=== PATIENT | male | born 1965 | race Caucasian/White ===

== ENCOUNTER → 2018-07-02 | Outpatient (CLI) | payer OTHER | END | disposition home or self-care (01) | LOC: C.PATHSPEC 17:41 | PROVIDERS: ATTEND Surgery | DX: L72.0 Epidermal cyst (principal) ==

== ENCOUNTER 2019-06-12 11:34 | Observation (INO) ==
--- OUTSIDE RECORDS SUMMARY | 2019-06-12 11:37 | External Medical Summary | Continuity of Care Document ---
:1965 Author Name Dara Limon, Provider Address Unavailable Unavailable , Care Team Providers Name Role Phone Unavailable Unavailable Unavailable NISREEN SAMS Unavailable Unavailable Problems Hepatitis C (070.70) (B19.20) Unstable angina (411.1) (I20.0) Tobacco abuse (305.1) (Z72.0) Bipolar disorder (296.80) (F31.9) Angina pectoris (413.9) (I20.9) Coronary artery disease (414.00) (I25.10) Hyperlipidemia (272.4) (E78.5) Hypertension (401.9) (I10) Inferior NV (410.40) (I21.19) Left ventricular dysfunction (429.9) (I51.9) Soft tissue mass (729.90) (M79.9) Sebaceous cyst (706.2) (L72.3) Allergies and Adverse Reactions No Known Drug Allergies (Allergy) Wool (Allergy) Medications Aspirin 81 MG TABS; TAKE 1 TABLET DAILY. , M.D. Quantity: 90 Refills: 3 FLUoxetine HCl - 20 MG Oral Capsule; Take 4 capsules daily , M.D. Refills: 0 Plavix 75 MG Oral Tablet; TAKE 1 TABLET DAILY. , M.D. Quantity: 30 Refills: 5 Atorvastatin Calcium 40 MG Oral Tablet; TAKE 1 TABLET AT BED TIME. , M.D. Refills: 0 Melatonin 3 MG Oral Tablet; TAKE 1 TABLET AT BEDTIME. , M.D. Refills: 0 Mirtazapine 30 MG Oral Tablet , M.D. Refills: 0 Nitrostat 0.4 MG Sublingual Tablet Subli ngual; PLACE 1 TABLET UNDER THE TONGUE EVERY 5 MINUTES FOR UP TO 3 DOSES NEEDED FOR CHEST PAIN.CALL 911 IF PAIN PERSISTS. , M.D. Quantity: 25 Refills: 5 raNITIdine HCl - 150 MG Oral Tablet; TAKE 1 TABLET TWICE NEO LY. , M.D. Refills: 0 Warden Carbonate 150 MG Oral Capsule; T JYOTSNA 1 CAPSULE TWICE DAILY ALONG WITH 300 MG. , M.D. Refills: 0 Warden Carbonate 300 MG Oral Capsule; T JYOTSNA 1 CAPSULE TWICE DAILY ALONG WITH 150 MG. , M.D. Refills: 0 Ibuprofen 600 MG Oral Tablet; TAKE 1 TABLET 3 TIMES DAILY. , M.D. Start: 03-Jul-2018 Refills: 0 Metoprolol Tartrate 50 MG Oral Tablet , M.D. Refills: 0 Procedures History of CABG Status: Completed History of cyst excision Status: [facility] ed 02-Jul-2018 0:00 Immunizations Immunizations not documented Plan of Treatment Planned Observations Planned Goals not documented Results No Known Results Results not documented Encounters Appointment; Hernan Sutton M.D. 02-Jul-2018 14:20 Encounter Diagnosis: Problem not documented
[2019-06-12] MEDS ORDERED: NITROGLYCERIN SL 0.4 MG/TAB TAB SL STA (12:14)
[2019-06-12] MEDS ORDERED: NITROGLYCERIN 2% OINTMENT 30GM TUBE EXT ONE (12:14)
[2019-06-12 12:21] LABS: Basophils # (auto) 0.05 K/uL (0-0.2); Basophils % (auto) 0.5 %; Eosinophils # (auto) 0.23 K/uL (0-0.5); Eosinophils % (auto) 2.2 %; Hematocrit (blood only) 43.2 % (42-52); Hemoglobin 15.1 g/dL (14.0-18.0); Immature Granulocytes # (auto) 0.03 K/uL (0.00-0.02); Immature Granulocytes % (auto) 0.3 %; Lymphocytes # (auto) 2.91 K/uL (1.2-3.4); Lymphocytes % (auto) 27.8 %; Mean Corpuscular Volume 87.3 fL (80-100); Mean Platelet Volume 10.2 fL (7.4-10.4); Monocytes # (auto) 0.71 K/uL (0.11-0.59); Monocytes % (auto) 6.8 %; Neutrophils # (auto) 6.55 K/uL (1.4-6.5); Neutrophils % (auto) 62.4 %; Platelet Count 225 K/uL (130-400); RDW Standard Deviation 41.6 fL (36.4-46.3); Red Blood Count 4.95 M/uL (4.7-6.1); White Blood Count 10.48 K/uL (4.8-10.8)
--- NOTE | 2019-06-12 12:21 | Emergency Department Note ---
Entered by Heavenly Dye acting as a scribe for Cyril Prater MD History of Present Illness General Chief complaint: Chest Pain Time Seen by Provider: 06/12/19 12:00 Source: patient History of Present Illness Provider complaint: Chest pain Onset (ago): hour(s) 6 Location: chest Radiation: other (left shoulder and arm) Pain Consistency: + intermittent Maximum Pain Intensity: 3 Quality: + sharp Associated symptoms: + chest pain, + nausea/vomiting (nausea), + shortness of breath and + other (Positive: sweats Negative: bloody or black stools) The patient is a 53 year old male who presents to the ED with complaints of intermittent sharp central chest pain that started 6 hours ago. The patient reports his pain radiates to the left side of his shoulder and down his arm. He states he has shortness of breath, sweats, and nausea. The patient notes it hurt to breathe this morning but not anymore. He describes his pain as someone sitting on my chest and rates it as 6/10. The patient states he was given nitro in the ambulance and his pain was improved. He reports he has been having intermittent chest pain for the past 5 years. The patient states last time he had chest pain was 3 days ago. He notes last time he had a stress test was 3 years ago and does not know the results. The patient states his pain was worse today and decided to come to the ED. He reports he has history of bypass surgery and a placed stent. The patient notes he has history of hepatitis C and hypertension. He reports he is a former smoker and does not use drugs. He notes he has family history of heart disease. The patient denies bloody or black stools, history of blood clots, or history of HIV. . Home Medications Home Medications Medication Instructions Recorded Confirmed Type aspirin [Aspirin Low Dose] 81 mg PO DAILY 06/12/19 06/12/19 History atorvastatin 80 mg PO DAILY 06/12/19 06/12/19 History clopidogrel 75 mg PO DAILY 06/12/19 06/12/19 History fluoxetine 20 mg PO DAILY 06/12/19 06/12/19 History lisinopril 10 mg PO DAILY 06/12/19 06/12/19 History lithium carbonate 450 mg PO BID 06/12/19 06/12/19 History metoprolol succinate 50 mg PO DAILY 06/12/19 06/12/19 History nitroglycerin 0.4 mg SUBLINGUAL DAILY PRN 06/12/19 06/12/19 History quetiapine 100 mg PO TID 06/12/19 06/12/19 History Allergies Allergy/AdvReac Type Severity Reaction Status Date / Time wool AdvReac Unknown Unverified 06/12/19 12:19 Past Med/Surg History Medical History Bipolar disorder (Chronic) Coronary artery disease (Chronic) Left-sided chest pain (Acute) Hepatitis C (Acute) Hypertension (Chronic) Heart disease Family History Other Heart disease Social History Feels Safe at Home: Yes Smoking Status: Former smoker Review of Systems See HPI for pertinent positives & negatives. and A total of 10 systems reviewed and were otherwise negative Physical Exam Vital Signs Vital Signs - 24 hr 06/12/19 11:47 06/12/19 11:56 06/12/19 12:15 Temperature 37.0 C Temperature Source Oral Sepsis Recent Fever Within 48 Hours No Sepsis New/Unexplained Change in Mental Status No Sepsis Action Taken by Nursing No Action Required Pulse Rate 72 Pulse Rate [Apical] Pulse Rate from SpO2 Sensor Respiratory Rate 16 Respiratory Effort / Characteristics Non-Labored Respiratory Depth Normal Respiratory Pattern Regular Blood Pressure 132/89 Blood Pressure [Right Arm] Blood Pressure Mean 103 Blood Pressure Mean [Right Arm] Pulse Oximetry 95 96 95 Oxygen Delivery Method Room Air Room Air Room Air 06/12/19 12:27 06/12/19 12:40 06/12/19 13:00 Temperature Temperature Source Sepsis Recent Fever Within 48 Hours Sepsis New/Unexplained Change in Mental Status Sepsis Action Taken by Nursing Pulse Rate 53 L Pulse Rate [Apical] 59 L 57 L Pulse Rate from SpO2 Sensor 53 L Respiratory Rate 18 18 20 Respiratory Effort / Characteristics Non-Labored Spontaneous Respiratory Depth Normal Normal Respiratory Pattern Blood Pressure 133/73 Blood Pressure [Right Arm] 140/85 139/78 Blood Pressure Mean 93 Blood Pressure Mean [Right Arm] 103 98 Pulse Oximetry 94 95 95 Oxygen Delivery Method Room Air Room Air Room Air 06/12/19 13:24 06/12/19 13:30 06/12/19 14:00 Temperature Temperature Source Sepsis Recent Fever Within 48 Hours Sepsis New/Unexplained Change in Mental Status Sepsis Action Taken by Nursing Pulse Rate 54 L 52 L 53 L Pulse Rate [Apical] Pulse Rate from SpO2 Sensor 54 L 52 L 54 L Respiratory Rate 20 20 20 Respiratory Effort / Characteristics Respiratory Depth Respiratory Pattern Blood Pressure 131/80 128/80 133/72 Blood Pressure [Right Arm] Blood Pressure Mean 97 96 92 Blood Pressure Mean [Right Arm] Pulse Oximetry 94 95 94 Oxygen Delivery Method Room Air Room Air General: Non-ill appearing middle aged man in no acute distress. HEENT: Normal cephalic atraumatic. Pupils are equal round and reactive to light. Extraocular movements are intact. Oropharynx is pink with moist mucous membranes. No swelling of the mouth lips or tongue. Neck: Supple with a midline trachea. No meningeal signs or stiffness, no JVD or bruits. No Stridor. Chest: Clear to auscultation bilaterally. No wheezes or rhonchi. No increased work of breathing. Heart: regular rate and rhythm. Abdomen: Soft nontender, nondistended without rebound guarding or rigidity. Extremities: No cyanosis clubbing or edema. No calf tenderness or asymmetry Spine/Back. Non tender to palpation. No CVA tenderness Skin: Good turgor without rashes. Neurologic exam: Cranial nerves two through 12 are intact. Motor and sensation are intact and symmetrical throughout. Course 1203: The patient was evaluated in room A10. A complete history and physical exam was performed. 1235: I reviewed the patient's case with Dr. Vincent [facility] Hospitalist. 1240: I checked on the patient. The patient is feeling much better. His pain is almost gone. 1302: I reassessed the patient and he appears comfortable and in no distress. He reports his pain as 3/10. I ordered him 2 ml IV morphine. 1341: I reviewed the patient's case with Dr. Vincent [facility] Hospitalist. He is admitting the patient. Administered Medications Discontinued Medications Morphine Sulfate (Morphine Sulfate) 2 mg IV NOW STA Stop: 06/12/19 13:06 Last Admin: 06/12/19 13:09 Dose: 2 mg Documented by: [id number] Nitroglycerin (Nitro-Bid 2%) 1 inch EXT NOW ONE Stop: 06/12/19 12:15 Last Admin: 06/12/19 12:26 Dose: 1 inch Documented by: [id number] Nitroglycerin (Nitrostat) 0.4 mg SL NOW STA Stop: 06/12/19 12:15 Last Admin: 06/12/19 12:26 Dose: 0.4 mg Documented by: [id number] Medical Decision Making Differential Diagnosis Differential Diagnosis: Acute coronary syndrome, arrhythmia, CHF, PE, anxiety. Medical Records Attestation: I reviewed the patient's medical records. Home Medications Current Medication List: was personally reviewed by me Laboratory Data Attestation: I reviewed the patient's lab results. Result diagrams: 06/12/19 11:55 06/12/19 11:55 Lab Results 06/12/19 06/12/19 06/12/19 Range/Units 11:55 11:55 11:55 WBC 10.48 (4.8-10.8) K/uL RBC 4.95 (4.7-6.1) M/uL Hgb 15.1 (14.0-18.0) g/dL Hct 43.2 (42-52) % MCV 87.3 (80-100) fL MCH 30.5 (25-34) pg MCHC 35.0 (32-36) g/dL RDW Std Deviation 41.6 (36.4-46.3) fL RDW Coeff of Jonna 13.0 (11.5-14.5) % Plt Count 225 (130-400) K/uL MPV 10.2 (7.4-10.4) fL Immature Gran % (Auto) 0.3 % Neut % (Auto) 62.4 % Lymph % (Auto) 27.8 % [place] % (Auto) 6.8 % Eos % (Auto) 2.2 % Baso % (Auto) 0.5 % Immature Gran # (Auto) 0.03 H (0.00-0.02) K/uL Neut # (Auto) 6.55 H (1.4-6.5) K/uL Lymph # (Auto) 2.91 (1.2-3.4) K/uL [place] # (Auto) 0.71 H (0.11-0.59) K/uL Eos # (Auto) 0.23 (0-0.5) K/uL Baso # (Auto) 0.05 (0-0.2) K/uL PT 10.1 (9.0-12.0) Seconds INR 1.0 (0.9-1.1) APTT 23.7 (21.0-31.0) Seconds PTT Ratio 0.9 Sodium 139 (136-145) mmol/L Potassium 3.8 (3.5-5.1) mmol/L Chloride 106 (98-107) mmol/L Carbon Dioxide 25 (21-32) mmol/L Anion Gap 8.0 (3-11) BUN 16 (7-18) mg/dl Creatinine 1.34 (0.6-1.4) mg/dl Est Cr Clr Drug Dosing 70.0 ml/min Est GFR ( Amer) 69.6 Est GFR (Non-Af Amer) 60.1 BUN/Creatinine Ratio 11.7 (10-20) Glucose 86 (70-99) mg/dl Calcium 9.3 (8.5-10.1) mg/dl Total Bilirubin 0.7 (0.2-1) mg/dl AST 34 (15-37) U/L ALT 62 (12-78) U/L Alkaline Phosphatase 60 (45-117) U/L Troponin I < 0.015 (0-0.045) ng/ml Total Protein 7.4 (6.4-8.2) gm/dl Albumin 3.9 (3.4-5.0) gm/dl Globulin 3.5 (2.5-4.0) gm/dl Albumin/Globulin Ratio 1.1 (0.9-2) Lipase 118 (73-393) U/L Imaging Data Radiologist's Impression: Radiology results as stated below per my review and the radiologist's interpretation: XR chest 1V portable HISTORY: 53 years-old Male Chest Pain acute atypical chest pain COMPARISON: None available TECHNIQUE: Portable AP view of the chest FINDINGS: Cardiomediastinal and hilar silhouettes are within normal limits. Prior median sternotomy likely with prior CABG. The inferior most sternotomy wire is fractured. No evidence of dehiscence. No pneumothorax, pleural effusion, focal airspace consolidation or overt pulmonary edema. Bones of the chest appear grossly intact. IMPRESSION: No acute process. The above report was generated using voice recognition software. It may contain grammatical, syntax or spelling errors. Electronically signed by: Gaston Mendoza M.D. 06/12/2019 12:27 PM ECG Data Attestation: I personally reviewed and interpreted this ECG as follows: Indication: chest pain Rate (beats per minute): 64 Rhythm: normal sinus Findings: + Q waves (Inferior); no ST elevation Comparison ECG Date: no prior available Additional Comments: Repeat second ECG: Sinus bradycardia at 58 beats per minute. No acute ST elevation Inferior Q waves Repeat third ECG: Sinus bradycardia No change compared to ECG number 2. Blood Pressure Blood Pressure Findings: Normal blood pressure Blood Pressure Disposition: did not require urgent referral MDM Narrative This patient comes in as described above. He has history of coronary artery disease and had chest pain today. He does have chest pain off and on but thinks that this was worse today. He took a total of 4 nitroglycerin prior to arrival he took 2 this morning and then 2 in the ambulance. The 2 in the ambulance seem to help. He is already had aspirin prior to arrival. He appears in no acute distress and is stable vital signs upon my initial evaluation. His initial EKG was nonischemic appearing. I did repeat an EKG after evaluating him as he said he felt the chest pain will start and come back it is unchanged compared to EKG #1. I did order an additional nitroglycerin as well as an inch of nitroglycerin paste. Blood work was also ordered including cardiac biomarkers and chest x- ray. He was reassessed frequently. His heart score is approximately 5. He was feeling much better after receiving additional nitro here as well as the paced. His chest x-ray does not suggest congestive heart failure, pneumonia, or pneumothorax. He has no acute electrolyte or metabolic abnormalities. I do think he needs to be observed/admitted for further inpatient treatment and evaluation given his significant risk factors. I have consulted Dr. Vincent to see him for these measures. When Dr. Vincent went to see the patient he said his pain was 3 out of 10 so he did order another EKG. I reviewed this it again is unchanged. We have 3 unchanged EKGs. I did give him morphine 2 mg IV as he appears in no distress or discomfort and has already received nitroglycerin sublingually as well as topically. He was further reassessed and his pain went to 0. He will be admitted for further cardiac evaluation and monitoring. Impression & Plan Left-sided chest pain, Unstable angina, Hepatitis C, Coronary artery disease The scribe's documentation has been prepared under my direction and personally reviewed by me in its entirety. I confirm that the note above accurately reflects all work, treatment, procedures, and medical decision making performed by me.
[2019-06-12 12:26] LABS: Albumin Level 3.9 gm/dl (3.4-5.0); Aspartate Aminotransferase 34 U/L (15-37); BUN Creatinine Ratio 11.7 (10-20); Blood Urea Nitrogen 16 mg/dl (7-18); Calcium 9.3 mg/dl (8.5-10.1); Carbon Dioxide 25 mmol/L (21-32); Chloride 106 mmol/L (98-107); Est GFR (African American) 69.6; Est GFR (Non-African American) 60.1; Glucose 86 mg/dl (70-99); Potassium 3.8 mmol/L (3.5-5.1); Sodium 139 mmol/L (136-145)
--- NOTE | 2019-06-12 12:28 | XRay Report ---
XR chest 1V portable HISTORY: 53 years-old Male Chest Pain acute atypical chest pain COMPARISON: None available TECHNIQUE: Portable AP view of the chest FINDINGS: Cardiomediastinal and hilar silhouettes are within normal limits. Prior median sternotomy likely with prior CABG. The inferior most sternotomy wire is fractured. No evidence of dehiscence. No pneumothor ax, pleural effusion, focal airspace consolidation or overt pulmonary edema. Bones of the chest appea r grossly intact. IMPRESSION: No acute process. The above report was generated using voice recognition software. It may contain grammatical, syntax o r spelling errors. Electronically signed by: Gaston Mendoza M.D. 06/12/2019 12:27 PM
[2019-06-12 12:30] LABS: Partial Thromboplastin Ratio 0.9; Partial Thromboplastin Time 23.7 Seconds (21.0-31.0); Prothrombin Time 10.1 Seconds (9.0-12.0)
[2019-06-12 12:31] LABS: Alanine Aminotransferase 62 U/L (12-78); Albumin Globulin Ratio 1.1 (0.9-2); Alkaline Phosphatase 60 U/L (45-117); Bilirubin,Total 0.7 mg/dl (0.2-1); Globulin 3.5 gm/dl (2.5-4.0); Total Protein 7.4 gm/dl (6.4-8.2); Troponin I < 0.015 ng/ml (0-0.045)
[2019-06-12] MEDS ORDERED: MoRPHine SULFATE 4 MG/ML 1 ML CARP\\VIAL IV STA (13:05)
--- NOTE | 2019-06-12 13:52 | History & Physical Report ---
Date of Service June 12, 2019 Assessment & Plan (1) Left-sided chest pain: Observation with telemetry. Serial troponins and EKGs. Cardiac echo. Continue aspirin, statin, beta-adeline, Plavix. Cardiology consultation Present on Admission?: Yes (2) Coronary artery disease: PTCA procedure in 2002 followed by coronary artery bypass grafting in 2012. Continue current medical management. Cardiology consultation Present on Admission?: Yes (3) Hypertension: Treated with lisinopril and metoprolol (4) Bipolar disorder: Treated with lithium (5) DVT prophylaxis: Lovenox subcu History of Present Illness Chief Complaint: Chest pain at rest Primary Care Provider: ISADORA Maryjo 53-year-old male with known coronary artery disease. He underwent PTCA with stenting in 2002 followed by coronary artery bypass grafting in 2012. [facility] He awoke this morning with chest pain at rest accompanied by shortness of breath diaphoresis and nausea. He describes the chest discomfort is both sharp and pressure-like with radiation to the left arm and shoulder. He took 2 sublingual nitroglycerin tablets 20 minutes apart with some relief of his symptoms but the discomfort persisted and he was brought to the ED for evaluation. He was given additional sublingual and topical nitrates and IV morphine and is now pain-free. Initial troponin normal. Serial EKGs in the ED are unremarkable. Chest x-ray negative. He is placed in observation for further assessment. Allergies Allergy/AdvReac Type Severity Reaction Status Date / Time wool AdvReac Unknown Unverified 06/12/19 12:19 Home Medications Home Medications Medication Instructions Recorded Confirmed Type aspirin [Aspirin Low Dose] 81 mg PO DAILY 06/12/19 06/12/19 History atorvastatin 80 mg PO DAILY 06/12/19 06/12/19 History clopidogrel 75 mg PO DAILY 06/12/19 06/12/19 History fluoxetine 20 mg PO DAILY 06/12/19 06/12/19 History lisinopril 10 mg PO DAILY 06/12/19 06/12/19 History lithium carbonate 450 mg PO BID 06/12/19 06/12/19 History metoprolol succinate 50 mg PO DAILY 06/12/19 06/12/19 History nitroglycerin 0.4 mg SUBLINGUAL DAILY PRN 06/12/19 06/12/19 History quetiapine 100 mg PO TID 06/12/19 06/12/19 History Past Med/Surg History Medical History Bipolar disorder (Chronic) Coronary artery disease (Chronic) Left-sided chest pain (Acute) Hepatitis C Hypertension (Chronic) Heart disease Family History Other Heart disease Social History Feels Safe at Home: Yes Smoking Status: Former smoker Review of Systems Review of Systems: Constitutional-no fever or chills ENT-no blurred vision, no double vision, no epistaxis, no sore throat Respiratory-no cough, no wheezing. Shortness of breath at rest with chest discomfort Cardiac-no palpitations, no syncope. Chest discomfort at rest as described above GI-no nausea, vomiting, diarrhea, melena, hematochezia -no urinary retention, no urinary incontinence, no dysuria, no hematuria Musculoskeletal-no joint pain, no muscle tenderness Skin-no bruising, no rashes, no pruritus Neuro-no isolated weakness, no paresthesia, no weakness Psych-no depression, no anxiety Physical Exam Physical Exam: General-alert and oriented x3, no fevers, no chills HEENT-head atraumatic and normocephalic, TMs intact bilaterally, pupils equal and reactive to light, extraocular muscles intact Neck-no lymphadenopathy or thyromegaly, trachea midline Chest-clear to auscultation percussion. No rales wheezing or rhonchi Cardiac-regular rate and rhythm, normal S1 and S2, no murmurs Abdomen-normal bowel sounds, nontender, no hepatosplenomegaly Extremities-no cyanosis, clubbing, or edema Neuro-cranial nerves II through XII intact, motor and sensory function within normal limits, strength symmetrical 5/5, no focal deficits Psych-normal affect, normal mood Results & Data Vital Signs (Past 12 Hours) Vital Signs Temp Pulse Pulse Resp BP BP Pulse Ox 06/12/19 13:24 54 L 20 131/80 94 06/12/19 13:00 53 L 20 133/73 95 06/12/19 12:40 57 L 18 139/78 95 06/12/19 12:27 59 L 18 140/85 94 06/12/19 12:15 95 06/12/19 11:56 96 06/12/19 11:47 37.0 C 72 16 132/89 95 Laboratory Results 06/12/19 11:55 06/12/19 11:55 PG Care Time/CCT Total # of Minutes Spent Total Time Spent with Patient: Total time spent is greater than 50% in coordination of care (as documented) at patient's floor/unit and/or counseling patient:
[2019-06-12] MEDS ORDERED: ONDANSETRON INJ 2 MG/ML 2 ML VIAL IV PRN (15:39)
[2019-06-12] MEDS ORDERED: ALUMINUM/MAGNESIUM SUSP 30 ML UDC PO PRN (15:39)
[2019-06-12] MEDS ORDERED: ZOLPIDEM TARTRATE 5 MG TAB PO PRN (15:39)
[2019-06-12] MEDS ORDERED: NITROGLYCERIN SL 0.4 MG/TAB TAB SL PRN (15:39)
[2019-06-12] MEDS: MoRPHine SULFATE 2 MG/ML CARP IV PRN ×2 (16:20→23:39)
[2019-06-12] MEDS: QUETIAPINE FUMARATE 100 MG TABLET PO SCH ×2 (16:25→20:30)
[2019-06-12] MEDS: NITROGLYCERIN 2% OINTMENT 30GM TUBE EXT SCH ×2 (18:53→23:40)
[2019-06-12] MEDS ORDERED: ENOXAPARIN INJ 40 MG/0.4 ML SYR SQ SCH (19:00)
[2019-06-12] MEDS ORDERED: LITHIUM CARBONATE 450 MG TABCR PO SCH (21:00)
[2019-06-12] MEDS: ACETAMINOPHEN 325 MG TAB PO PRN (21:49)
[2019-06-13] MEDS: NITROGLYCERIN 2% OINTMENT 30GM TUBE EXT SCH ×2 (06:04→15:17)
[2019-06-13] MEDS: ACETAMINOPHEN 325 MG TAB PO PRN (07:38)
[2019-06-13] MEDS ORDERED: ASPIRIN 81 MG ECTAB PO SCH (09:00)
[2019-06-13] MEDS ORDERED: METOPROLOL SUCC 50MG EXT REL TAB PO SCH (09:00)
[2019-06-13] MEDS ORDERED: LITHIUM CARBONATE 450 MG TABCR PO SCH (09:00)
[2019-06-13] MEDS ORDERED: LISINOPRIL 10 MG TAB PO SCH (09:00)
[2019-06-13] MEDS ORDERED: CLOPIDOGREL BISULFATE 75 MG TAB PO SCH (09:00)
[2019-06-13] MEDS ORDERED: FLUOXETINE HCL 20 MG CAP PO SCH ×2 (09:00)
[2019-06-13] MEDS ORDERED: QUETIAPINE FUMARATE 100 MG TABLET PO SCH (09:00)
[2019-06-13] MEDS ORDERED: METOPROLOL TARTRATE 50 MG TAB PO SCH (09:00)
[2019-06-13] MEDS ORDERED: ATORVASTATIN 40 MG TAB PO SCH (09:00)
[2019-06-13] MEDS ORDERED: REGADENOSON 0.4 MG/5 ML SYR IV ONE (09:59)
--- NOTE | 2019-06-13 15:19 | Myocardial Perfusion Study ---
Date of Service June 13, 2019 Myocardial Perfusion Study [facility] Myocardial Perfusion Study Report Procedure: 1. Myocardial perfusion study performed in multiple views/images 2. Lexiscan pharmacologic stress ECG Indications: 1. Chest pain 2. Prior MIs 3. CAD 4. Ischemic cardiomyopathy Ordering physician: Dr. Ventura Procedural details: For the stress portion of the study, Lexiscan 0.4 mg was intravenously administered followed by a saline flush. This was followed by 30 mCi of tech netium 99m Cardiolite, injected at 12:15 p.m. on 06/13/2019. 30 minutes following the injection, imaging of the heart was performed in multiple projections. For the rest portion of the study, 10.6 mCi technetium 99m Cardiolite was injected intravenously at 9:45 a.m. on 06/13/2019. 1 hour following the injection, imaging of the heart was performed in the same projections. Lexiscan stress ECG: Resting ECG demonstrated: Sinus bradycardia 59 bpm. Nonspecific S abnormality. Inferior infarct. Maximum heart rate: 95 bpm Maximal, age-predicted heart rate: 56 % Resting blood pressure: 111/68 mmHg Maximum blood pressure: 111/[address] changes: None Arrhythmia: None Symptoms: No chest pain or shortness of breath Findings: Rotating raw imaging demonstrated no significant lung uptake. There is no significant motion artifact. Heart size appeared normal. Myocardial perfusion demonstrated a large area of severely reduced uptake involving the base to apical inferolateral, base to apical inferior, and base to apical inferoseptal wall segments. These defects were fixed with minimal reversibility involving the inferolateral and inferoseptal territories, suggesting large RCA infarct with anni-infarct ischemia. Ejection fraction: 31 % Wall motion: Akinesis involving the RCA territory (inferior, inferolateral, and inferoseptal wall segments), with otherwise mild global hypokinesis. No significant transient ischemic dilation. Impression: 1. Large RCA infarct with anni-infarct ischemia of the inferolateral and inferoseptal lawrence. 2. Akinesis of the RCA territory, otherwise mild global hypokinesis. 3. Moderately to severely reduced LV systolic function. EF 31%. 4. Nondiagnostic Lexiscan ECG.
--- NOTE | 2019-06-13 15:59 | Cardiology Consultation ---
Date of Consultation June 13, 2019 Assessment & Plan (1) Left-sided chest pain: The patient's description of chest discomfort is atypical for classic angina pectoris. Although his symptoms lasted for approximately 8 hours, troponins are all undetectable, and there are no acute EKG changes. As he does have an inferior wall motion abnormality on his echocardiogram, we will proceed with nuclear stress testing to rule out myocardial ischemia. (2) Coronary artery disease: The patient has a history of right coronary artery stent in 2002, a 2 vessel bypass in January 2014. Continue medical management. (3) Ischemic cardiomyopathy: Left ventricular ejection fraction is borderline reduced at 45-50% with an inferior and apical wall motion abnormality. (4) Hypertension: Adequate control on current medical regimen. (5) Hypercholesterolemia: Continue high dose atorvastatin. History of Present Illness Attending Physician: Juanjose Bueno MD History of Present Illness Mr. Hinton is a 53-year-old male admitted yesterday with a chest pain syndrome. This consultation was ordered to assist in his management. The patient was in his usual state of health until approximately 6 a.m. yesterda y. He began to note substernal chest discomfort which persisted throughout the day. His symptoms finally resolved at approximately 4 p.m.. There are no other associated symptoms such as shortness of breath, nausea, vomiting, or radiation of the discomfort. He did have some minor improvement when using sublingual nitroglycerin. The patient has not been experiencing any exertional angina pectoris. He further denies syncope, presyncope, PND, orthopnea, palpitations, lower extremity edema, and claudication. The patient's cardiac history began back in 2002 when he required a stent in his right coronary artery for an unstable coronary syndrome. The patient was stable until January 2014 when he again presented with an unstable coronary syndrome and a cardiac catheterization revealed severe two-vessel disease. The patient had an SHAY to the LAD and an SVG to the RCA performed on February 06, 2014 at [facility] in [place], [place]. Currently, patient is resting comfortably in bed without complaints. Past medical history #1 Coronary artery disease #2 RCA [id number] #3 CABG 2March 2013see above #4 Hypertension #5 Hypercholesterolemia #6 Mild left ventricular [id number]% #7 Bipolar disorder #8 Tobacco abuse Social history Grew up in [facility] Resides in [facility] retirement Smokes 3 cigarettes a day No alcohol History of heroin abuse Family history Noncontributory Review of systems A 10 point review of systems was negative except for that described above. Allergies Allergy/AdvReac Type Severity Reaction Status Date / Time wool AdvReac Unknown Unverified 06/12/19 12:19 Home Medications Home Medications Medication Instructions Recorded Confirmed Type aspirin [Aspirin Low Dose] 81 mg PO DAILY 06/12/19 06/12/19 History atorvastatin 80 mg PO DAILY 06/12/19 06/12/19 History clopidogrel 75 mg PO DAILY 06/12/19 06/12/19 History fluoxetine 80 mg PO DAILY 06/12/19 06/12/19 History lisinopril 10 mg PO DAILY 06/12/19 06/12/19 History lithium carbonate 900 mg PO DAILY 06/12/19 06/12/19 History metoprolol tartrate 50 mg PO BID 06/12/19 06/12/19 History nitroglycerin 0.4 mg SUBLINGUAL DAILY PRN 06/12/19 06/12/19 History quetiapine 100 mg PO DAILY 06/12/19 06/12/19 History Patient History Medical History Bipolar disorder (Chronic) Coronary artery disease (Chronic) Left-sided chest pain (Acute) Hepatitis C (Acute) Hypertension (Chronic) Heart disease Family History Other Heart disease Social History Preferred Language: [place]ian Communication Ability: Effective Court Worker Required: No Beliefs That Will Affect Care: None Current Living Situation: Other Current Living Situation Comment: prisoner Feels Safe at Home: Yes Smoking Status: Former smoker Tobacco Type: cigarettes Do You Dip or Chew Tobacco: No Smoking End Date: 06/05/19 Hx Alcohol Use: No Hx Substance Use: Yes Physical Exam Physical Exam: In general this is a well-developed well-nourished white male in no acute distress. HEENT exam is negative. Neck is supple with full carotid upstrokes. There are no carotid bruits. Jugular venous pressure is flat at 90. There is no thyromegaly. Cardiovascular exam reveals a regular rhythm with a normal S1 and S2. No S3, S4, or murmurs are noted. Lungs are clear without rales, rhonchi, or wheezes. Abdomen is soft and nontender without bruits. Extremities reveal intact radial artery and posterior tibial pulses bilaterally. There is no peripheral edema. Results & Data Vital Signs (Past 12 Hours) Vital Signs Temp Pulse Resp BP Pulse Ox 06/13/19 15:29 36.8 C 55 L 18 147/77 H 94 06/13/19 07:44 36.8 C 52 L 18 148/62 H 96 06/13/19 03:53 36.8 C 57 L 18 120/75 95 Laboratory Results CBC notes hemoglobin 15.1, crit 43.2, white count 10.4, platelet of [id number]. Electrolytes notice order of 139, potassium 3.8, chloride 106, bicarb 25, BUN 16, creatinine 1.34, glucose of 86. Three troponin I levels were undetectable at less than 0.015. Diagnostic Findings EKG notes normal sinus rhythm and an old inferior myocardial infarction pattern. This is unchanged from prior tracings. Chest x-ray shows no acute disease. Echocardiogram notes mild left ventricular dysfunction with an ejection fraction 45-50 percent. There is hypokinesis of the entire inferior wall and apex. (1) Coronary artery disease Associated angina: with unstable angina Coronary Disease-Associated Artery/Lesion type: unspecified vessel or lesion type [place] vs. transplanted heart: [place] heart Qualified Code(s): I25.110 - Atherosclerotic heart disease of [place] coronary artery with unstable angina pectoris
--- NOTE | 2019-06-13 16:45 | Discharge Summary ---
Date of Service June 13, 2019 Admission HPI Per Admitting Provider 53-year-old male with known coronary artery disease. He underwent PTCA with stenting in 2002 followed by coronary artery bypass grafting in 2012. He resides at the local long term. He awoke this morning with chest pain at rest accompanied by shortness of breath diaphoresis and nausea. He describes the chest discomfort is both sharp and pressure-like with radiation to the left arm and shoulder. He took 2 sublingual nitroglycerin tablets 20 minutes apart with some relief of his symptoms but the discomfort persisted and he was brought to the ED for evaluation. He was given additional sublingual and topical nitrates and IV morphine and is now pain-free. Initial troponin normal. Serial EKGs in the ED are unremarkable. Chest x-ray negative. He is placed in observation for further assessment. Principal Diagnosis non cardiac chest pain Discharge Exam The patient appeared well nourished and normally developed. Vital signs as documented. Head exam is unremarkable. normocephalic, atraumatic Neurologic exam is A&Ox3, no focal deficits, strength is equal bilateral Psychologically seems neither anxious or depressed Skin is warm Dry without bruises or lesions Discharge Data Allergies Allergy/AdvReac Type Severity Reaction Status Date / Time wool AdvReac Unknown Unverified 06/12/19 12:19 Consultations 06/13/2019 nuclear stress test:1. Large RCA infarct with anni-infarct ischemia of the inferolateral and inferoseptal lawrence. 2. Akinesis of the RCA territory, otherwise mild global hypokinesis. 3. Moderately to severely reduced LV systolic function.31% ( echo 4. Nondiagnostic Lexiscan ECG. Transthoracic echo which is better assessment for ejection fraction shows EF of 45 to 50% with hypokinesis of the inferior wall and apex consistent with previous DC Hospital Course (1) Left-sided chest pain: Observation with telemetry. Serial troponins and EKGs, plus cardiac echo. Are not suggestive of acute coronary syndrome or current acute DC. Nuclear perfusion stress test is unremarkable for reversible ischemia making his chest pain being cardiac in nature very low likelihood. Continue aspirin, statin, beta-adeline, Plavix. Cardiology consultation does not suggest any additional interventions (2) Coronary artery disease: PTCA procedure in 2002 followed by coronary artery bypass grafting in 2012. Continue current medical management. (3) Hypertension: Treated with lisinopril and metoprolol (4) Bipolar disorder: Treated with lithium Total Time Total Time Spent Total Time Spent (In Minutes): greater than 30 minutes were required to prepare discharge Discharge Plan Discharge Items [facility]position[facility] Reason For Visit: CHEST PAIN,KNOWN CORONARY ARTERY DISEASE Discharge Diagnosis: non cardiac chest pain Discharge Goals: Decrease discomfort and Diagnostic testing Activity: Resume your previous activity Non-emergency contact: Primary Care Provider Call non-emergency contact if: you have any medication questions Follow-up/Referrals: Maryjo MUIR [Primary Care Provider] - Diet: Heart Healthy Addtl Provider Instructions: pt's chest pain has been determined not to be from cardiac origin, he had a negative stress test. Prescriptions: Continued atorvastatin 80 mg Tablet 80 mg PO DAILY RF: 0 clopidogrel 75 mg Tablet 75 mg PO DAILY RF: 0 aspirin [Aspirin Low Dose] 81 mg Tablet,Delayed Release (Dr/Ec) 81 mg PO DAILY RF: 0 quetiapine 100 mg Tablet 100 mg PO DAILY RF: 0 lithium carbonate 450 mg Tablet Extended Release 900 mg PO DAILY RF: 0 lisinopril 10 mg Tablet 10 mg PO DAILY RF: 0 nitroglycerin 0.4 mg Tablet, Sublingual 0.4 mg sublingual DAILY PRN (Reason: Chest Pain) RF: 0 fluoxetine 20 mg Capsule 80 mg PO DAILY RF: 0 metoprolol tartrate 50 mg Tablet 50 mg PO BID RF: 0 Stand-Alone Forms: Call Back Authorization, [facility] Admission Data Admit Date/Time: 06/12/19 13:53 Attending Provider: Juanjose Bueno Admit Provider: Bj Vincent Primary Care Provider: Maryjo MUIR Other Providers: Bj Vincent ; Dmitri Taylor ; Aurelio Littlejohn ; Andi Ventura ; Gabo Yo ; Kalpesh Valdovinos Jr ; Jerry Cunningham ; Paola Tillman ; Loren Quinn ; Roberto Davies ; Roberto Lopez ; Caesar Walker ; Bj Rodrigues ; Ryanne Real ; Heavenly Sargent Service: Telemetry Other Interventions: Discharge Summary Assessment (RN) Last Done: 06/13/19 16:34
== END 2019-06-13 18:17 ==
LOC: 2S 11:34 → ED 11:34 → SUATTDRO 13:53 → 2S 15:13